=== PATIENT | male | born 1970 | race Caucasian/White ===

== ENCOUNTER 2022-09-11 14:19 | Emergency (ER) | payer OTHER ==
[~2022-09-11] VITALS: Ht 175.3 cm; Wt 64.4 kg
[2022-09-11 14:24] VITALS: BP 106/62
--- NOTE | 2022-09-11 14:30 | NUR ---
PT PROVIDED WITH FOOD AND WATER. PT TO WAIT IN LOBBY.
[2022-09-11] MEDS ORDERED: IBUP-2213 PO (15:09)
--- NOTE | 2022-09-11 15:41 | NUR ---
Patient discharged with v/s stable. Written and verbal after care instructions given and explained. Patient alert, oriented and verbalized understanding of instructions. Ambulatory with steady gait. All questions addressed prior to discharge. ID band removed. Patient advised to follow up with PMD. Rx of MOTRIN given. Patient educated on indication of medication including possible reaction and side effects. Opportunity to ask questions provided and answered.WITH HOMELESS RESOURCES AND FOOD. CLOTHING APPROPRIATE FOR THE WEATHER Addendum: 09/11/22 at 1638 by [facility] PROVIDED TO NEAREST HOMELESS [facility]. MORE FOOD PROVIDED.
== END 2022-09-11 15:41 | disposition home or self-care (01) ==
LOC: MED 14:19
DX: M25.512 Pain in left shoulder (principal)
CPT/HCPCS: 99283